=== PATIENT | male | born 1975 | race African-American/Black ===

== ENCOUNTER 2021-12-03 11:16 | Emergency (ER) | payer OTHER ==
[~2021-12-03] VITALS: Ht 180.3 cm; Wt 89.5 kg
[2021-12-03 11:37] VITALS: BP 137/95
[2021-12-03] MEDS ORDERED: BUTALB/APAP/CAFEIN 50/325/40MG TABLET. PO ONE (11:45)
[2021-12-03] MEDS ORDERED: DEXAMETHASONE 4 MG TABLET PO ONE (11:45)
--- NOTE | 2021-12-03 11:45 | PHYS DOC ---
Past History Past Surgical History: Other Additional Past Surgical Histo: hernia Alcohol Use: Occasionally General Adult EDM: Chief Complaint: HYPERTENSION HPI: HPI: Patient is a [age] year old [sex] who presents with [] Review of Systems: Review of Systems: Constitutional: Denies fever or chills Eyes: Denies redness or eye pain HENT: Denies nasal congestion or sore throat Respiratory: Denies cough or shortness of breath Cardiovascular: Denies chest pain or palpitations GI: Denies abdominal pain, nausea, or vomiting : Denies dysuria or hematuria Musculoskeletal: Denies back pain or joint pain Integument: Denies rash or skin lesions Neurologic: Denies headache, focal weakness or sensory changes Complete systems were reviewed and found to be within normal limits, except as documented in this note. Physical Exam: PE: Constitutional: Well developed, well nourished, no acute distress, non-toxic appearance HENT: Normocephalic, atraumatic Eyes: PERRL, EOMI, conjunctiva normal, no discharge Neck: Normal range of motion, no tenderness, supple Lungs & Thorax: No respiratory distress, equal chest rise and fall Abdomen: Soft, no tenderness Skin: Warm, dry, no erythema, no rash Back: No tenderness, no CVA tenderness Extremities: No tenderness, ROM intact, no edema Neurologic: Alert and oriented X 3, normal motor function, normal sensory function, no focal deficits noted Psychologic: Affect normal, judgment normal Current Patient Data: Vital Signs: Vital Signs Date Time Temp Pulse Resp B/P (MAP) Pulse Ox O2 Delivery O2 Flow Rate FiO2 12/03/21 11:37 98.0 83 16 137/95 (109) 99 Room Air EKG: EKG: [] Radiology/Procedures: Radiology/Procedures: [] Heart Score: C/O Chest Pain: N/A Course & Med Decision Making: Course & Med Decision Making Patient stable for discharge with outpatient follow-up with PCP. Discussed findings and plan with patient, who acknowledges understanding and agreement. Kamron Disclaimer: Kamron Disclaimer: This electronic medical record was generated, in whole or in part, using a voice recognition dictation system. Departure Departure: Impression: Primary Impression: Headache Qualified Codes: R51.9 - Headache, unspecified Disposition: HOME / SELF CARE / HOMELESS Condition: STABLE Referrals: PCPJERMAIN (PCP) FRED ARTHUR MD Patient Instructions: Headache, FAQs Additional Instructions: Increase fluid hydration. May also use [id number] ibuprofen as needed for pain or discomfort. Scripts Butalb/Acetaminophen/Caffeine ([id number] [id number]) 1 Each Tablet 1 EACH PO Q6HRS PRN for HEADACHE, #14 TAB Prov: HUGO THIBODEAUX DO 12/03/21 HUGO THIBODEAUX DO Dec 03, 2021 11:45
[2021-12-03] MEDS ORDERED: BUTA1TAB23 PO (11:47)
== END 2021-12-03 12:19 | disposition home or self-care (01) ==
LOC: ER 11:16
DX: R51.9 Headache, unspecified (principal)
CPT/HCPCS: 99283; J8540